=== PATIENT | female | born 1960 | race Caucasian/White ===

== ENCOUNTER 2017-07-17 18:31 | Emergency (ER) | payer BC ==
[~2017-07-17] VITALS: Ht 177.8 cm; Wt 63.8 kg
[2017-07-17 18:34] VITALS: TEMP 36.9; Ht 177.8 cm; Wt 63.8 kg
[2017-07-17] MEDS ORDERED: VITA400C3 PO (19:07)
[2017-07-17] MEDS ORDERED: RALO60TA12 PO (19:07)
[2017-07-17] MEDS ORDERED: OMEG10007 PO (19:07)
[2017-07-17] MEDS ORDERED: [UNRECOGNIZED DRUG - CODE] PO (19:07)
[2017-07-17] MEDS ORDERED: ASCO500T3 PO (19:07)
[2017-07-17] MEDS ORDERED: CALC-20 PO (19:07)
--- NOTE | 2017-07-17 19:13 | DIAGNOSTIC IMAGING REPORT ---
L WRIST MIN 3 VIEWS ROUTINE CLINICAL HISTORY: Left wrist pain following fall. COMPARISON: None FINDINGS: There is an acute comminuted mildly displaced fracture through the distal metaphysis of the left radius with intra-articular extension. There is no acute fracture of the distal left ulna. Carpal bones are intact. A ring on the fourth finger is present. IMPRESSION: Acute comminuted mildly displaced distal left radial fracture with intra-articular extension. Electronically signed by: Osvaldo Anaya M.D. 07/17/2017 7:12 PM Dictated Date/Time: 07/17/2017 7:07 PM
[2017-07-17 19:24] VITALS: BP 121/77; PULSE 82; O2SAT 97
--- NOTE | 2017-07-17 19:31 | EMERGENCY ROOM VISIT NOTE ---
History First contact with patient: 18:41 Chief Complaint: WRIST PAIN Stated Complaint: SORE WRIST FROM FALL History of Present Illness The patient is a 56 year old female who presents to the Emergency Room via private vehicle with complaints of "sore wrist from falling ". The patient states that earlier today around 4:30 PM, she was hiking, and slipped on leaves that were raw, fell for striking her left wrist off of the ground. She states that she caught herself. She can move her fingers, but notes left wrist pain rated as an 8/10. She is left handed. She has had Tylenol with minimal relief. Review of Systems A complete 6-point Review of Systems was discussed with the patient, with pertinent positives and negatives listed in the History of Present Illness. All remaining Review of Systems questions can be considered negative unless otherwise specified. Past Medical/Surgical History No pertinent. Family History No pertinent. Social History Smoking Status: Never Smoker Patient lives in [facility]. Current/Historical Medications Scheduled Ascorbic Acid (Vitamin C), 500 MG PO DAILY Calcium Carbonate-Vitamin D (Calcium 600 + D), 1 TAB PO DAILY Fish Oil ([place]-3), 1 CAP PO DAILY Raloxifene Hcl (Evista), 60 MG PO DAILY Vitamin A (Beta Carotene), 1 DOSE PO DAILY Vitamin E (Vitamin E 400 Iu), 400 INTER.UNIT PO DAILY Physical Exam Vital Signs Date Time Temp Pulse Resp B/P (MAP) Pulse Ox O2 Delivery O2 Flow Rate FiO2 07/17/17 19:24 82 14 121/77 97 Room Air 07/17/17 18:34 36.9 95 18 129/70 99 Room Air Physical Exam VITAL SIGNS - Vital signs and nursing notes were reviewed. Stable. GENERAL -56-year-old female appearing her stated age who is in no acute distress. Communicates well with provider and answers questions appropriately. SKIN - Without rashes. No evidence of open fracture. EXTREMITIES - No clubbing or peripheral cyanosis. She is neurovascularly intact in the left upper extremity. Pinpoint tenderness overlying the patient' s left wrist. +5/5 strength noted in UE/LE bilaterally. Medical Decision & Procedures ER Provider Diagnostic Interpretation: L WRIST MIN 3 VIEWS ROUTINE CLINICAL HISTORY: Left wrist pain following fall. COMPARISON: None FINDINGS: There is an acute comminuted mildly displaced fracture through the distal metaphysis of the left radius with intra-articular extension. There is no acute fracture of the distal left ulna. Carpal bones are intact. A ring on the fourth finger is present. IMPRESSION: Acute comminuted mildly displaced distal left radial fracture with intra-articular extension. Electronically signed by: Osvaldo Anaya M.D. 07/17/2017 7:12 PM Dictated Date/Time: 07/17/2017 7:07 PM Medical Decision Patient was seen and evaluated as above. She presents to us today with left wrist pain. X-rays are obtained. She declined pain medication. Radiograph results as above. There is a left radius fracture. I did decide to consult the orthopedic surgeon condenser cleaner, Dr. Contreras, secondary to the intra-articular nature of this fracture. He recommended follow-up in his office, and a nice volar splint. This is reasonable. Patient is from [facility], and notes she will likely be driving home tomorrow, to follow up there. I do believe this is reasonable. She was given the option of follow-up here. She did well with the splinting, and was neurovascularly intact post-splinting. She appears stable for outpatient management. She was educated upon worrisome symptoms which to return, had questions answered prior to discharge, and was discharged home in good condition. She declined higher strength pain medication. In the evaluation and treatment of this patient, the following differential diagnoses were considered: Wrist Sprain, Wrist Fracture, Wrist Dislocation, Scapholunate Dissociation, Carpal Fracture, Metacarpal Fracture, Radial Styloid Process Fracture, Ulnar Styloid Process Fracture, or Carpal Tunnel Syndrome. Impression Primary Impression: Wrist pain, left Additional Impression: Radius fracture Departure Information Dispostion Home / Self-Care Condition GOOD Referrals No Doctor, Assigned (PCP) Nash Contreras, DO Patient Instructions My [facility] Additional Instructions You have been treated in the Emergency Department for Wrist Pain. For pain control, you can use the following [id number] medicines (if >12 yo): - Regular strength (325mg/tab) Tylenol (acetaminophen) 2 tabs every 4-6 hours as needed. Do not exceed 12 tablets in a 24 hour period. Avoid taking more than 3 grams (3000 mg) of Tylenol per day. This includes any other sources of acetaminophen you may take on a regular basis. - Regular strength (200 mg/tab) Advil (ibuprofen) 1-2 tabs every 4-6 hours as needed. Do not exceed a dose of 3200 mg per day. If this is a recent injury (<24 hrs), ice can be applied to the area of pain for the first 3 days to help decrease pain and inflammation. You have been provided the number for an Orthopaedic Surgeon. You should call this number as soon as possible to establish a follow-up visit from today's Emergency Department visit. Keep the brace/splint in place until evaluated by Orthopedics. Return to the Emergency Department if your current symptoms worsen despite treatment course outlined above, or if you develop any of the following symptoms : intractable pain despite aforementioned treatment course or new onset of numbness or tingling of the fingers. L WRIST MIN 3 VIEWS ROUTINE CLINICAL HISTORY: Left wrist pain following fall. COMPARISON: None FINDINGS: There is an acute comminuted mildly displaced fracture through the distal metaphysis of the left radius with intra-articular extension. There is no acute fracture of the distal left ulna. Carpal bones are intact. A ring on the fourth finger is present. IMPRESSION: Acute comminuted mildly displaced distal left radial fracture with intra-articular extension. Electronically signed by: Osvaldo Anaya M.D. 07/17/2017 7:12 PM Dictated Date/Time: 07/17/2017 7:07 PM Problem Qualifiers
== END 2017-07-17 19:59 | disposition home or self-care (01) ==
LOC: C.EDB 18:33 → C.EDD 19:59
DX: S52.572A Other intraarticular fracture of lower end of left radius, initial encounter for closed fracture (principal); W01.0XXA Fall on same level from slipping, tripping and stumbling without subsequent striking against object, initial encounter; Y93.01 Activity, walking, marching and hiking